=== PATIENT | male | born 1970 | race African-American/Black ===

== ENCOUNTER 2020-03-23 01:56 | Emergency (ER) | payer MEDICARE, MEDICAID ==
[~2020-03-23] VITALS: Ht 172.7 cm; Wt 109.1 kg
[2020-03-23 02:07] VITALS: BP 145/62
[2020-03-23 02:34] LABS: COVID AG,FIA SOURCE NASOPHARYNGEAL
== END 2020-03-23 04:15 | disposition home or self-care (01) ==
LOC: EMS 01:59
DX: R05 Cough (principal); R68.83 Chills (without fever); Z20.828 Contact with and (suspected) exposure to other viral communicable diseases
CPT/HCPCS: 71045; 87426; 99284; U0003